=== PATIENT | female | born 1980 ===

== ENCOUNTER 2018-07-01 10:19 | Inpatient (IN) | payer OTHER ==
[~2018-07-01] VITALS: Ht 152.4 cm; Wt 62.6 kg
[2018-07-01] MEDS ORDERED: PRENATAL FORMU1 EAC1 PO (11:20)
== END 2018-07-03 14:06 | DRG 807 ==
LOC: LDR 10:19 → OB/GYN 17:17
PROC: 10E0XZZ Delivery of Products of Conception, External Approach (ICD-10-PCS; principal; 2018-07-01)
PROC: 4A1HXCZ Monitoring of Products of Conception, Cardiac Rate, External Approach (ICD-10-PCS; 2018-07-01)
PROC: 0HQ9XZZ Repair Perineum Skin, External Approach (ICD-10-PCS; 2018-07-01)
DX: O70.0 First degree perineal laceration during delivery (principal); Z37.0 Single live birth; Z3A.38 38 weeks gestation of pregnancy

== ENCOUNTER 2018-07-29 14:13 | Outpatient (CLI) | payer OTHER ==
[~2018-07-29 14:13] MED LIST: PRENATAL FORMU1 EAC1 PO
== END 2018-07-29 14:14 | disposition home or self-care (01) ==
LOC: RAD 501 14:13
DX: M54.5 Low back pain (principal)